=== PATIENT | female | born 1980 | race Caucasian/White ===

== ENCOUNTER 2016-12-24 09:55 | Emergency (ER) | payer MEDICAID ==
[~2016-12-24] VITALS: Wt 54.0 kg
[~2016-12-24 09:55] MED LIST: PREN-39 PO
--- NOTE | 2016-12-24 10:21 | ERD ---
ER Documentation Chief Complaint Date/Time DATE: 12/24/16 TIME: 10:18 Chief Complaint vag bleeding since this morning. mild abd pain , no dysuria HPI 36-year-old female who is with history of 1 failed at 32 weeks comes emergency room vaginal bleeding approximately 12 weeks . She does not recall exact menstrual periods, she was previously taking a control pill and reports her last period that she knows of in August 2016 and she then started the Depo shot. She experienced vaginal bleeding this morning, 2 gushes of blood with suprapubic cramping. She denies fevers, chills or dizziness ROS All systems reviewed and are negative except as per history of present illness. Medications Home Meds Reported Medications Vits W-Ca,Fe,Fa(<1MG) ( Vitamins) 1 Tab Tablet, 1 TAB PO DAILY for 7 Days 08/10/14 Allergies Allergies: Coded Allergies: No Known Drug Allergy (Verified Allergy, Unknown, 08/31/08) PMhx/Soc Medical and Surgical Hx: pt denies Medical Hx, pt denies Surgical Hx Hx Alcohol Use: No Hx Substance Use: No Hx Tobacco Use: No Physical Exam Vitals Vital Signs Date Time Temp Pulse Resp B/P Pulse Ox O2 Delivery O2 Flow Rate FiO2 12/24/16 09:59 98.0 75 20 136/84 99 Physical Exam General: Well-developed, well-nourished. The patient appears in no acute distress. HEENT: Head is normocephalic, atraumatic. No scleral icterus. Neck: Supple. Nontender. Lungs: Clear to auscultation. Normal air movement. Heart: Regular rate and rhythm. S1 and S2 are normal. No murmurs, gallops, or rubs. Abdomen: Soft, nontender, nondistended. Bowel sounds are normoactive. Extremities: No clubbing or cyanosis. Normal pulses. Moving extremities x 4. No weakness. Neurologic: Alert and oriented 3. No focal deficits. Skin: Normal turgor. No rash or lesions. Result Diagram: 12/24/16 1026 Results 24 hrs Laboratory Tests Test 12/24/16 10:26 12/24/16 10:32 Basophils # 0.010^3/ul Basophils % 0.4% Beta HCG, Quantitative 664417.0mIU/ml Eosinophils # 0.010^3/ul Eosinophils % 0.4% Hematocrit 36.4% Hemoglobin 12.4g/dl Lymphocytes # 1.910^3/ul Lymphocytes % 22.7% Mean Corpuscular Hemoglobin 30.9pg Mean Corpuscular Hemoglobin Concent 34.0g/dl Mean Corpuscular Volume 90.9fl Mean Platelet Volume 9.7fl Monocytes # 0.410^3/ul Monocytes % 4.6% Neutrophils # 6.010^3/ul Neutrophils % 71.9% Nucleated Red Blood Cells # 0.010^3/ul Nucleated Red Blood Cells % 0.0/100WBC Platelet Count 69330^3/UL Red Blood Count 4.0010^6/ul Red Cell Distribution Width 13.2% White Blood Count 8.410^3/ul Urine Bacteria FEW Urine Bilirubin NEGATIVE Urine Clarity CLEAR Urine Color LT. YELLOW Urine Glucose NEGATIVE% Urine Hemoglobin 2+ Urine Ketones NEGATIVE Urine Leukocyte Esterase NEGATIVE Urine Microscopic RBC 2-5/HPF Urine Microscopic WBC 0-2/HPF Urine Nitrite NEGATIVE Urine Specific Batson <=1.005 Urine Total Protein NEGATIVE Urine Urobilinogen 0.2 E.U./dL Urine pH 7.0 PROCEDURE: US Obstetrical 1st Trimester CLINICAL INDICATION: Vaginal bleeding TECHNIQUE: Multiple real-time images were acquired of the patient's maternal abdomen utilizing a curved array transducer. COMPARISON: Vaginal bleeding FINDINGS: There is a well implanted gestational sac within the fundus of the uterus with a mean sac diameter of 4.63 cm which corresponds to a gestational sac age of 10 weeks 3 days. No yolk sac is identified. There is a single pole with a crown-rump length of a 4.75 cm which corresponds to a gestational age of 11 weeks 4 days. There is positive cardiac activity being a t 152 beats per minute. The ovaries are not demonstrated. No adnexal mass or free fluid is identified IMPRESSION: 1. Single live intrauterine fetus which by ultrasound corresponds to a gestational age of 11 weeks 0 days plus or minus 5 days. The estimated date of delivery based on today's sonogram is 07/15/2017. 2. The ovaries are not demonstrated and no adnexal mass or free fluid is evident. Physician Med Date Time Electronically viewed and signed by Physician Med on 12/24/2016 11:14 Procedures/MDM 36 year old female comes in with vaginal bleeding single live IUP seen at 11 weeks today on ultrasound. No anemia, patient patient has type and Rh+, no indication for RhoGam. Patient does not show any concerning surgical process, no evidence of ectopic and will be advised to follow-up with OB in 3- 4 days. Departure Diagnosis: Primary Impression: Vaginal bleeding Condition: Good SWAPNA BLACKBURN PA-C Dec 24, 2016 10:21
[2016-12-24 10:53] LABS: BASOPHILS % 0.4 % (0.0-2.0); EOSINOPHILS % 0.4 % (0.0-7.0); HEMATOCRIT 36.4 % (37.0-47.0); HEMOGLOBIN 12.4 g/dl (12.0-16.0); LYMPHOCYTES # 1.9 10^3/ul (0.8-2.9); LYMPHOCYTES % 22.7 % (15.0-51.0); MEAN CORPUSCULAR HEMOGLOBIN 30.9 pg (29.0-33.0); MEAN CORPUSCULAR VOLUME 90.9 fl (82.0-101.0); MEAN PLATELET VOLUME 9.7 fl (7.4-10.4); MONOCYTE # 0.4 10^3/ul (0.3-0.9); MONOCYTES % 4.6 % (0.0-11.0); NEUTROPHILS % 71.9 % (39.0-77.0); PLATELET COUNT 202 10^3/UL (140-440); RED CELL DISTRIBUTION WIDTH 13.2 % (11.5-14.5); UNCORRECTED WBC 8.4 10^3/ul (4.8-10.8); WHITE BLOOD COUNT 8.4 10^3/ul (4.8-10.8)
[2016-12-24 10:55] LABS: CONDITION 1
[2016-12-24 11:10] LABS: ADD UMIC YES; URINE BILIRUBIN (Dip) NEGATIVE (NEGATIVE); URINE BLOOD (Dip) 2+ (NEGATIVE); URINE COLOR LT. YELLOW (YELLOW); URINE GLUCOSE (Dip) NEGATIVE (NEGATIVE); URINE KETONES (Dip) NEGATIVE (NEGATIVE); URINE LEUKOCYTE ESTERASE (Dip) NEGATIVE (NEGATIVE); URINE NITRITE (Dip) NEGATIVE (NEGATIVE); URINE TOTAL PROTEIN (Dip) NEGATIVE (NEGATIVE); URINE UROBILINOGEN (Dip) 0.2 E.U./dL (0.1-1.0)
--- NOTE | 2016-12-24 11:15 | RADRPT ---
PROCEDURE: US Obstetrical 1st Trimester CLINICAL INDICATION: Vaginal bleeding TECHNIQUE: Multiple real-time images were acquired of the patient's maternal abdomen utilizing a curved array transducer. COMPARISON: Vaginal bleeding FINDINGS: There is a well implanted gestational sac within the fundus of the uterus with a mean sac diameter o f 4.63 cm which corresponds to a gestational sac age of 10 weeks 3 days. No yolk sac is identified. There is a single pole with a crown-rump length of a 4.75 cm which corresponds to a gestation al age of 11 weeks 4 days. There is positive cardiac activity being a t 152 beats per minute. The ovaries are not demonstrated. No adnexal mass or free fluid is identified IMPRESSION: 1. Single live intrauterine fetus which by ultrasound corresponds to a gestational age of 11 weeks 0 days plus or minus 5 days. The estimated date of delivery based on today's sonogram is 07/15/2017. 2. The ovaries are not demonstrated and no adnexal mass or free fluid is evident. Physician Med Date Time Electronically viewed and signed by Physician Med on 12/24/2016 11:14 /
[2016-12-24 11:33] LABS: BACTERIA,URINE FEW
== END 2016-12-24 12:16 | disposition home or self-care (01) ==
LOC: FTE 09:55
DX: O20.9 Hemorrhage in early pregnancy, unspecified (principal); Z3A.11 11 weeks gestation of pregnancy
CPT/HCPCS: 36415; 76801; 81001; 84702; 85025; 86900; 86901; Z7502; 81003

== ENCOUNTER 2017-05-30 09:30 | Inpatient (IN) | payer MEDICAID ==
[~2017-05-30] VITALS: Ht 152.4 cm; Wt 61.7 kg
[2017-05-30] MEDS ORDERED: ACETAMINOPHEN 325 MG TAB PO PRN (10:00)
[2017-05-30 10:39] VITALS: Ht 152.4 cm; Wt 61.7 kg
[2017-05-30 10:41] VITALS: BP 99/64; PULSE 59; RESP 20
[2017-05-30] MEDS: PRENATAL VITAMIN PO SCH (10:53)
[2017-05-30] MEDS: FERROUS SULFATE (EC) 325 MG TAB PO SCH ×2 (10:53→21:06)
[2017-05-30] MEDS ORDERED: FERR325C PO (10:59)
[2017-05-30] MEDS ORDERED: LACTATED RINGER'S 1,000 ML IV SCH (11:00)
[2017-05-30] MEDS ORDERED: LACTATED RINGER'S 1,000 ML IV ONE (11:00)
[2017-05-30] MEDS: LACTATED RINGER'S 1,000 ML IV SCH ×2 (11:52→18:19)
[2017-05-30] MEDS ORDERED: DIPHENHYDRAMINE 50 MG CAP PO PRN (21:00)
[2017-05-30] MEDS: DOCUSATE SODIUM 100 MG CAP PO SCH (21:01)
--- NOTE | 2017-05-30 21:28 | HP ---
Date/Time of Note Date/Time of Note DATE: 05/30/17 TIME: 21:23 OB - History Hx of Present Chief Complaint: Low LALI Estimated Due Date: Jul 09, 2017 : 4 Para: 2 Spontaneous : 0 Therapeutic : 0 Care: Good Care Ultrasounds: Normal mid trimester US Obstetrical Complications: None Medical Complications: None Past Family/Social History * Past Medical, Surgical, Family and Obstetric Histories reviewed from chart. OB Admission Exam Vital Signs Vital Signs Vital Signs Date Time Temp Pulse Resp B/P Pulse Ox O2 Delivery O2 Flow Rate FiO2 05/30/17 10:41 97.6 59 20 99/64 Room Air Physical Exam HEENT: WNL Heart: Rhythm Normal Lungs: Clear, Equal Abdomen: WNL Extremities: Normal Reflexes: Normal Heart Rate: 120's Accelerations: Accelerations Present Decelerations: No Decelerations Varibility: Moderate OB Assessment/Plan Reason for admission: other (Borderline oligohydramnios) Plan: Other (IV hydration, monitor, repeat LALI on 05/31/2017.) BIJAN BRANCH MD May 30, 2017 21:28
[2017-05-30 22:40] LABS: ADD UMIC NO; UR ASCORBIC ACID NEGATIVE (NEGATIVE); UR BILIRUBIN (Dip) NEGATIVE (NEGATIVE); UR BLOOD (Dip) NEGATIVE (NEGATIVE); UR CLARITY CLEAR (CLEAR); UR COLOR COLORLESS (YELLOW); UR GLUCOSE (Dip) NEGATIVE (NEGATIVE); UR KETONES (Dip) NEGATIVE (NEGATIVE); UR LEUKOCYTE ESTERASE (Dip) NEGATIVE Leu/ul (NEGATIVE); UR NITRITE (Dip) NEGATIVE (NEGATIVE); UR SPECIFIC GRAVITY (Dip) 1.004 (1.003-1.030); UR TOTAL PROTEIN (Dip) NEGATIVE (NEGATIVE); UR UROBILINOGEN (Dip) NEGATIVE (NEGATIVE)
[2017-05-31] MEDS: LACTATED RINGER'S 1,000 ML IV SCH ×3 (00:36→14:16)
[2017-05-31] MEDS: DOCUSATE SODIUM 100 MG CAP PO SCH (09:10)
[2017-05-31] MEDS: PRENATAL VITAMIN PO SCH (09:10)
[2017-05-31] MEDS: FERROUS SULFATE (EC) 325 MG TAB PO SCH (09:10)
--- NOTE | 2017-05-31 13:52 | RADRPT ---
PROCEDURE: US OB. CLINICAL INDICATION: Low amniotic fluid index TECHNIQUE: Transabdominal OB views of the pelvis are available for review. COMPARISON: May 30, 2017, May 26, 2017 FINDINGS: Within the uterus, there is a single, live intrauterine . The presentation is cephalic. Th e heart rate is 140 beats per minute. The amniotic fluid index in four quadrants is 8.79 cm. The placenta is noted to be anterior and grade 3. There are no findings of abruption or previa. IMPRESSION: 1. Single live intrauterine with an amniotic fluid index of 8.79 cm. The presentation is cephalic. 2. The placenta is anterior and grade 3. There are no findings of abruption or previa. RPTAT: QQ .Diann Peoples MD, Date Time Electronically viewed and signed by .Diann Peoples MD, on 05/31/2017 13:52 .F/
--- NOTE | 2017-06-01 21:42 | DS ---
Date/Time of Note Date/Time of Note DATE: 06/01/17 TIME: 21:41 Obstetrical Discharge Record Final Diagnosis Final Diagnosis: not delivered Other Final Diagnosis Borderline Oligohydramnios Condition on Discharge Physical Assessment Voiding: Yes Bowel Movement: Yes Calf Tenderness: No Patient Condition: Stable BIJAN BRANCH MD Jun 01, 2017 21:42
== END 2017-05-31 14:50 | disposition home or self-care (01) | DRG 782 ==
LOC: OBG 09:50
PROVIDERS: ADMIT Obstetrics & Gynecology; ATTEND Obstetrics & Gynecology
DX: O41.03X0 Oligohydramnios, third trimester, not applicable or unspecified (principal); O09.523 Supervision of elderly multigravida, third trimester; Z3A.34 34 weeks gestation of pregnancy
CPT/HCPCS: 76816; 81003; 87086; J7120

== ENCOUNTER 2017-06-06 10:34 | Inpatient (IN) | payer MEDICAID ==
[~2017-06-06] VITALS: Ht 152.4 cm; Wt 62.7 kg
[2017-06-06 10:20] VITALS: BP 103/67; PULSE 80; RESP 16; Ht 152.4 cm; Wt 62.7 kg
[2017-06-06] MEDS: LACTATED RINGER'S 1,000 ML IV SCH ×4 (10:20→17:55)
[~2017-06-06 10:34] MED LIST changes: +FERR325C PO
[2017-06-06] MEDS ORDERED: ACETAMINOPHEN 325 MG TAB PO PRN (11:30)
[2017-06-06] MEDS: FERROUS SULFATE (EC) 325 MG TAB PO SCH (17:41)
[2017-06-06] MEDS: DOCUSATE SODIUM 100 MG CAP PO SCH (17:42)
--- NOTE | 2017-06-06 18:20 | HP ---
Date/Time of Note Date/Time of Note DATE: 06/06/17 TIME: 18:15 OB - History Hx of Present Chief Complaint: Low amniotic fluid Estimated Due Date: Jul 09, 2017 : 4 Para: 2 Spontaneous : 0 Therapeutic : 0 Care: Good Care Ultrasounds: Normal mid trimester US Obstetrical Complications: Other (abnormal serum marker) Medical Complications: None Past Family/Social History * Past Medical, Surgical, Family and Obstetric Histories reviewed from chart. OB Admission Exam Vital Signs Vital Signs Vital Signs Date Time Temp Pulse Resp B/P Pulse Ox O2 Delivery O2 Flow Rate FiO2 06/06/17 10:20 99.3 80 16 103/67 Room Air Physical Exam HEENT: WNL Heart: Rhythm Normal Lungs: Clear, Equal Abdomen: WNL Extremities: Normal Reflexes: Normal Heart Rate: 140's Accelerations: Accelerations Present Decelerations: No Decelerations Varibility: Moderate OB Assessment/Plan Reason for admission: other (oligohydramnios) Plan: Other (IV hydration, continuous monitoring, Repeat LALI on 06/07/2017) BIJAN BRANCH MD Jun 06, 2017 18:20
[2017-06-07] MEDS: LACTATED RINGER'S 1,000 ML IV SCH ×2 (01:57→08:36)
[2017-06-07] MEDS: FERROUS SULFATE (EC) 325 MG TAB PO SCH (08:46)
[2017-06-07] MEDS: DOCUSATE SODIUM 100 MG CAP PO SCH (08:46)
[2017-06-07] MEDS ORDERED: PRENATAL VITAMIN PO SCH (09:00)
--- NOTE | 2017-06-07 09:13 | RADRPT ---
PROCEDURE: Limited OB ultrasound CLINICAL INDICATION: Low LALI TECHNIQUE: Sonographic evaluation to assess the LALI was performed. Transabdominal imaging of the gravid uterus was performed. COMPARISON: No prior exam is available for comparison. FINDINGS: There is a single live intrauterine with a heart rate of 131 bpm. position is cephalic. The placenta is anterior. The LALI measures 9.0 cm. IMPRESSION: The LALI measures 9.0 cm. RPTAT: HH .Maggie Hogan MD, MD Date Time Electronically viewed and signed by .Maggie Hogan MD, on 06/07/2017 09:13 .G/
== END 2017-06-07 11:15 | disposition home or self-care (01) | DRG 782 ==
LOC: OBG 10:34 → EDSTATUS 07-09 10:05
PROVIDERS: ADMIT Obstetrics & Gynecology; ATTEND Obstetrics & Gynecology
DX: O41.03X0 Oligohydramnios, third trimester, not applicable or unspecified (principal); Z3A.35 35 weeks gestation of pregnancy
CPT/HCPCS: 76815; 84112; J7120

== ENCOUNTER 2017-06-30 03:40 | Inpatient (IN) | payer MEDICAID ==
[~2017-06-30] VITALS: Ht 157.5 cm; Wt 69.0 kg
[2017-06-30 04:06] VITALS: Ht 157.5 cm; Wt 69.0 kg
[2017-06-30] MEDS ORDERED: LACTATED RINGER'S 1,000 ML IV SCH (04:23)
[2017-06-30] MEDS ORDERED: OXYTOCIN 30 UNITS/LR 500 ML IV SCH ×2 (04:30)
[2017-06-30] MEDS ORDERED: LIDOCAINE 1% (MPF) 30 ML INJ INJ PRN (04:30)
[2017-06-30] MEDS ORDERED: METHYLERGONOVINE 0.2 MG INJ IM PRN ×2 (04:30→09:00)
[2017-06-30] MEDS ORDERED: OXYTOCIN 30 UNITS/LR 500 ML IV PRN ×2 (04:30→09:00)
[2017-06-30] MEDS ORDERED: BUTORPHANOL 2 MG INJ IV PRN (04:30)
[2017-06-30] MEDS ORDERED: MISOPROSTOL 200 MCG TAB PR PRN ×2 (04:30→09:00)
[2017-06-30] MEDS ORDERED: CARBOPROST 250 MCG INJ IM PRN ×2 (04:30→09:00)
[2017-06-30] MEDS ORDERED: IBUPROFEN 600 MG TAB PO PRN (04:30)
[2017-06-30 04:57] LABS: BASOPHILS % 0.5 % (0.0-2.0); EOSINOPHILS # 0.1 10^3/ul (0.0-0.5); EOSINOPHILS % 0.9 % (0.0-7.0); HEMATOCRIT 35.4 % (37.0-47.0); LYMPHOCYTES # 2.4 10^3/ul (0.8-2.9); LYMPHOCYTES % 29.6 % (15.0-51.0); MEAN CORPUSCULAR HEMOGLOBIN 30.5 pg (29.0-33.0); MEAN CORPUSCULAR HGB CONC 33.9 g/dl (32.0-37.0); MEAN CORPUSCULAR VOLUME 89.8 fl (82.0-101.0); MEAN PLATELET VOLUME 11.8 fl (7.4-10.4); MONOCYTE # 0.5 10^3/ul (0.3-0.9); NEUTROPHILS % 61.9 % (39.0-77.0); PLATELET COUNT 167 10^3/UL (140-415); RED BLOOD COUNT 3.94 10^6/ul (4.20-5.40); RED CELL DISTRIBUTION WIDTH 13.6 % (11.5-14.5)
[2017-06-30] MEDS ORDERED: AMPICILLIN 2 GM/NS (PMX) 100 ML IVPB ONE (05:00)
[2017-06-30 05:13] LABS: ADD UMIC YES; UR ASCORBIC ACID NEGATIVE (NEGATIVE); UR BACTERIA FEW /HPF (NONE SEEN); UR BILIRUBIN (Dip) NEGATIVE (NEGATIVE); UR BLOOD (Dip) 3+ mg/dL (NEGATIVE); UR CLARITY SLIGHTLY CLOUDY (CLEAR); UR COLOR YELLOW (YELLOW); UR GLUCOSE (Dip) NEGATIVE (NEGATIVE); UR KETONES (Dip) NEGATIVE (NEGATIVE); UR LEUKOCYTE ESTERASE (Dip) NEGATIVE Leu/ul (NEGATIVE); UR NITRITE (Dip) NEGATIVE (NEGATIVE); UR RBC 5 /HPF (0-5); UR SPECIFIC GRAVITY (Dip) 1.013 (1.003-1.030); UR SQUAMOUS EPITHELIAL CELL FEW /HPF (FEW); UR TOTAL PROTEIN (Dip) 1+ mg/dl (NEGATIVE); UR UROBILINOGEN (Dip) NEGATIVE (NEGATIVE)
[2017-06-30 05:15] LABS: INR 0.91; PROTIME 12.3 Sec (12.2-14.2)
[2017-06-30 05:16] LABS: PARTIAL THROMBOPLASTIN TIME 25.4 Sec (25.0-35.0)
[2017-06-30] MEDS ORDERED: MINERAL OIL LIGHT 10 ML VIAL TOP ONE (05:30)
[2017-06-30 05:45] VITALS: BP 157/85; PULSE 70; RESP 20
[2017-06-30] MEDS ORDERED: CLINDAMYCIN 900 MG/D5W (PMX) 50 ML IV SCH (06:00)
[2017-06-30] MEDS ORDERED: LACTATED RINGER'S 1,000 ML IV PRN (06:00)
--- NOTE | 2017-06-30 06:01 | HP ---
Date/Time of Note Date/Time of Note DATE: 06/30/17 TIME: 05:53 OB - History Hx of Present Free Text/Dictation 36y.o at 38w5d in active labor with intact membrane. EFM revealed uterine contractions q3-4 min. initial VE cx 3-4/80% /-2 admitted for expectant management. Chief Complaint: uterine contractions Estimated Due Date: Jul 09, 2017 : 4 Para: 3 Spontaneous : 0 Therapeutic : 0 Care: Good Care Ultrasounds: Normal mid trimester US Obstetrical Complications: None Medical Complications: None Past Family/Social History * Past Medical, Surgical, Family and Obstetric Histories reviewed from chart. Blood Type: O+ Rubella: immune RPR/VDRL: Negative GBS Status: Negative HBsAG: Negative OB Admission Exam Vital Signs Vital Signs Vital Signs Date Time Temp Pulse Resp B/P Pulse Ox O2 Delivery O2 Flow Rate FiO2 06/30/17 05:45 98.4 70 20 157/85 Room Air Physical Exam HEENT: WNL Heart: Rhythm Normal Lungs: Clear, Equal Abdomen: WNL Extremities: Normal Reflexes: Normal Cervical Dilatation: 3cm Effacement: 75% Station: -2 Membranes: Intact Amniotic Fluid: Unevaluable Heart Rate: 140's Accelerations: Accelerations Present Decelerations: No Decelerations Varibility: Moderate Contractions on Admission: < 5 Minutes Apart Intensity: Mild Last 72 hours Lab Results CBC & BMP 06/30/17 04:10 OB Assessment/Plan Reason for admission: active labor Plan: Expectant Management TAJ REESE MD Jun 30, 2017 06:01
--- NOTE | 2017-06-30 08:51 | LDN ---
Date/Time of Note Date/Time of Note DATE: 06/30/17 TIME: 08:46 Delivery Summary normal vaginal delivery of normal male infant Weeks of Gestation 38w5d Placenta Delivered: Spontaneously Meconium: none Episiotomy: No Perineal laceration: 0 Anesthesia type: None Estimated blood loss: 100 Sponge & Needle done & correct: Yes All needle counts correct: Yes Any foreign bodies felt in the: No Problems: Delivery Information Sex Infant Sex: male Apgars 1 Minute: 9 5 Minute: 9 Suctioning Nose & mouth suctioned at lloyd: Yes Delee suction performed: No Umbilical Cord Umbilical cord with: 3 Vessels Cord presentations: no nuchal cord Cord Blood was obtained: Yes Mother & Baby Disposition Disposition Mom & Baby to Maternity; Good: Yes Mom transferred to: Other () Baby to NICU: No TAJ REESE MD Jun 30, 2017 08:51
[2017-06-30] MEDS ORDERED: OXYCODONE/ASPIRIN (4.88/325) TAB PO PRN ×2 (09:00)
[2017-06-30] MEDS ORDERED: AMPICILLIN 1 GM/NS (PMX) 50 ML IVPB SCH (09:00)
[2017-06-30] MEDS ORDERED: BENZOCAINE 20% 56 ML SPRAY TOP PRN (09:00)
[2017-06-30] MEDS ORDERED: LANOLIN 7 GM TUBE TOP PRN (09:00)
[2017-06-30] MEDS ORDERED: WITCH HAZEL/GLYCERIN PAD PR PRN (09:00)
[2017-06-30] MEDS ORDERED: ZOLPIDEM 5 MG TAB PO PRN (09:00)
[2017-06-30] MEDS: SENNA/DOCUSATE NA (8.6MG/50MG) TAB PO SCH ×2 (09:00→21:09)
[2017-06-30 11:38] VITALS: BP 97/53; PULSE 59; RESP 18
[2017-06-30] MEDS: IBUPROFEN 600 MG TAB PO SCH ×3 (12:33→23:59)
[2017-06-30] MEDS ORDERED: CALCIUM CARBONATE 500 MG CHEW TAB PO ONE (13:00)
[2017-06-30 16:30] VITALS: BP 117/78; PULSE 51; RESP 18
[2017-06-30 20:30] VITALS: BP 96/50; PULSE 61; RESP 18
[2017-06-30 23:45] VITALS: BP 129/74; PULSE 81; RESP 19
[2017-07-01 04:15] VITALS: BP 99/54; PULSE 54; RESP 18
[2017-07-01] MEDS: IBUPROFEN 600 MG TAB PO SCH ×3 (05:29→17:32)
[2017-07-01 08:20] VITALS: BP 109/70; PULSE 62; RESP 18
[2017-07-01] MEDS: SENNA/DOCUSATE NA (8.6MG/50MG) TAB PO SCH ×2 (09:28→21:13)
[2017-07-01 10:18] LABS: BASOPHILS % 0.4 % (0.0-2.0); EOSINOPHILS # 0.1 10^3/ul (0.0-0.5); HEMATOCRIT 32.4 % (37.0-47.0); HEMOGLOBIN 11.1 g/dl (12.0-16.0); LYMPHOCYTES # 2.3 10^3/ul (0.8-2.9); LYMPHOCYTES % 25.3 % (15.0-51.0); MEAN CORPUSCULAR HGB CONC 34.3 g/dl (32.0-37.0); MEAN CORPUSCULAR VOLUME 90.5 fl (82.0-101.0); MEAN PLATELET VOLUME 11.6 fl (7.4-10.4); MONOCYTE # 0.4 10^3/ul (0.3-0.9); MONOCYTES % 4.6 % (0.0-11.0); NEUTROPHILS % 67.6 % (39.0-77.0); PLATELET COUNT 151 10^3/UL (140-415); RED BLOOD COUNT 3.58 10^6/ul (4.20-5.40); RED CELL DISTRIBUTION WIDTH 13.4 % (11.5-14.5); WHITE BLOOD COUNT 8.9 10^3/ul (4.8-10.8)
--- NOTE | 2017-07-01 13:07 | PN ---
Date/Time of Note Date/Time of Note DATE: 07/01/17 TIME: 13:05 OB Subjective Subjective Subjective day 1 Afebrile Vital signs stable abdomen soft uterus firm lochia normal extremity normal ambulation encouraged VAISHALI RAMACHANDRAN MD Jul 01, 2017 13:07
[2017-07-01 15:35] VITALS: BP 117/73; PULSE 60; RESP 18
[2017-07-01 20:15] VITALS: BP 115/69; PULSE 57; RESP 17
[2017-07-02] MEDS: IBUPROFEN 600 MG TAB PO SCH ×3 (00:03→13:07)
[2017-07-02 00:15] VITALS: BP 110/70; PULSE 54; RESP 16
[2017-07-02 04:00] VITALS: BP 101/58; PULSE 58; RESP 19
[2017-07-02 08:42] VITALS: BP 104/61; PULSE 56; RESP 20
[2017-07-02] MEDS ORDERED: DIPHTH/TET/ACEL PERTUSS (ADULT) 0.5 ML VIAL IM* ONE (09:00)
[2017-07-02] MEDS: SENNA/DOCUSATE NA (8.6MG/50MG) TAB PO SCH (09:18)
--- NOTE | 2017-07-02 11:40 | PD.PPDC ---
[facility] Discharge Instruction Condition Patient Condition: Good Activity/Restrictions Restrictions: No Exercising No Lifting No Driving No Sexual Activity Nothing in the Vagina No [place] No Tampons, douche Wound/Drain Care Instructions Wound/Drain Care Instructions: Wash with soap and water Keep clean and dry Follow-up Follow-up with Physician: 2, Week/Weeks Provider Information: instructions given recommended to make appointment to be seen at the clinic in 2 weeks Return to clinic for [facility] Instructions: Fever greater than 101 Chills Worsening abdominal pain Excessive Vaginal Bleeding More than 2 pads per hour Unable to tolerate diet OB Instructions: Breast Tenderness Depression Blurried Vision Headache Surgical Instructions: Incisional Drainage Incisional Redness VAISHALI RAMACHANDRAN MD Jul 02, 2017 11:39
--- NOTE | 2017-07-02 11:42 | DS ---
Date/Time of Note Date/Time of Note DATE: 07/02/17 TIME: 11:41 Discharge Summary Admission/Discharge Info Admit Date/Time Jun 30, 2017 at 04:30 Discharge Date/Time July 02, 2017 at 1130 Discharge Diagnosis Term Patient Condition: Good Procedures Normal vaginal delivery Hx of Present Illness Term in labor Hospital Course Satisfactory uneventful Home Meds Reported Medications Ferrous Sulfate (Iron) 325 Mg Capsule.er, 325 MG PO BID, CAP 05/30/17 Vits W-Ca,Fe,Fa(<1MG) ( Vitamins) 1 Tab Tablet, 1 TAB PO DAILY for 7 Days 08/10/14 Follow-up Plan instruction given recommended to make appointment to be seen at the clinic in 2 weeks Primary Care Provider Care Physician No Primary Time spent on discharge: < 30 minutes VAISHALI RAMACHANDRAN MD Jul 02, 2017 11:42
== END 2017-07-02 15:03 | disposition home or self-care (01) | DRG 775 ==
LOC: L-D 03:40 → OBT 03:40 → L-D 04:30 → PP1 18:06
PROVIDERS: ADMIT Obstetrics & Gynecology; ATTEND Obstetrics & Gynecology
PROC: 10E0XZZ Delivery of Products of Conception, External Approach (ICD-10-PCS; principal; 2017-06-30)
DX: O80 Encounter for full-term uncomplicated delivery (principal); Z37.0 Single live birth; Z3A.38 38 weeks gestation of pregnancy
CPT/HCPCS: 81001; 85025; 85610; 85730; 86592; 86900; 86901; 90715; G0463; J0290; J2590; J7120

== ENCOUNTER 2017-08-29 08:28 | Day surgery (SDC) | payer MEDICAID ==
[~2017-08-29] VITALS: Ht 154.9 cm; Wt 57.0 kg
[2017-08-29] VITALS (8 sets, daily range): BP systolic 94–124; BP diastolic 59–73; PULSE 54–68; RESP 15–20; Ht 154.9 cm; Wt 57.0 kg
[2017-08-29] MEDS ORDERED: BUPIVACAINE 0.5%/EPI (SDV) 30 ML INJ ONE (10:10)
[2017-08-29] MEDS ORDERED: PROPOFOL 20 ML ONE (10:37)
[2017-08-29] MEDS ORDERED: CEFAZOLIN 1 GM INJ ONE (10:37)
[2017-08-29] MEDS ORDERED: SUCCINYLCHOLINE CHLORIDE 100 MG/5 ML SYG IV ONE (10:37)
[2017-08-29] MEDS ORDERED: GLYCOPYRROLATE 0.4 MG INJ ONE (10:37)
[2017-08-29] MEDS ORDERED: ROCURONIUM 50 MG INJ ONE (10:37)
[2017-08-29] MEDS ORDERED: LIDOCAINE 2% (SDV) 5 ML INJ ONE (10:37)
[2017-08-29] MEDS ORDERED: NEOSTIGMINE 3 MG/3 ML SYRINGE ONE (10:37)
[2017-08-29] MEDS ORDERED: FENTAnyl 50 MCG/ML VIAL ONE (10:42)
[2017-08-29] MEDS ORDERED: MIDAZOLAM 1 MG/ML 2 ML INJ ONE (10:42)
[2017-08-29] MEDS ORDERED: ONDANSETRON 4 MG INJ ONE (10:49)
[2017-08-29] MEDS ORDERED: DEXAMETHASONE 4 MG/ML 1 ML INJ ONE (10:49)
[2017-08-29] MEDS ORDERED: FAMOTIDINE 20 MG INJ ONE (10:50)
[2017-08-29] MEDS ORDERED: HYDROmorphONE 2 MG/ML SYG ONE (10:50)
[2017-08-29] MEDS ORDERED: KETOROLAC 30 MG INJ ONE (11:37)
--- NOTE | 2017-08-29 11:56 | SIPON ---
Date/Time of Note Date/Time of Note DATE: 08/29/17 TIME: 11:54 Operative Report Preoperative Diagnosis Voluntary sterilization Postoperative Diagnosis Same Operation/Procedure Performed Minilaparotomy BTL Surgeon Bijan Branch MD assistant restaurant general manager industrial technologist Anesthesia: general Estimated blood loss: minimal Transfusion Required none Specimen right and left Fallopian tubes Grafts/Implants none Complications none BIJAN BRANCH MD Aug 29, 2017 11:56
[2017-08-29] MEDS ORDERED: DIPHENHYDRAMINE 50 MG INJ IV PRN (12:00)
[2017-08-29] MEDS ORDERED: HYDROmorphONE (0.2 MG/ML) 10ML SYG IV PRN ×3 (12:00)
[2017-08-29] MEDS ORDERED: FENTAnyl 50 MCG/ML VIAL IV PRN ×3 (12:00)
[2017-08-29] MEDS ORDERED: KETOROLAC 30 MG INJ IV PRN (12:00)
[2017-08-29] MEDS ORDERED: HYDROCODONE/APAP (5/325) TAB PO PRN (12:00)
[2017-08-29] MEDS ORDERED: PROCHLORPERAZINE 10 MG INJ IV PRN (12:00)
[2017-08-29] MEDS ORDERED: OXYCODONE/ACETAMINOPHEN (5/325) TAB PO PRN (12:00)
[2017-08-29] MEDS ORDERED: MEPERIDINE 25 MG INJ IV PRN (12:00)
[2017-08-29] MEDS ORDERED: ONDANSETRON 4 MG INJ IV PRN ×2 (12:00)
[2017-08-29] MEDS ORDERED: morphine 2 MG INJ IV PRN (12:00)
--- NOTE | 2017-08-29 12:42 | PREOPHP ---
DATE OF ADMISSION: 08/29/2017 HISTORY OF PRESENT ILLNESS: A 37-year-old female 4, para 3, AB 1, status post spontaneous v aginal delivery on 06/30/2017, requests sterilization by bilateral tubal ligation. PAST MEDICAL HISTORY: Unremarkable. PAST SURGICAL HISTORY: Unremarkable. FAMILY HISTORY: Diabetes. ALLERGIES: NO KNOWN ALLERGIES. PHYSICAL EXAMINATION: VITAL SIGNS: Patient is afebrile. Vital signs stable. HEAD, NECK AND CHEST: Within normal limits. ABDOMEN: Soft, nontender, nondistended. PELVIC: Normal. EXTREMITIES: Within normal limits. NEUROLOGIC: Within normal limits. IMPRESSION: Voluntary sterilization. PLAN: Minilaparotomy, bilateral tubal ligation. Risks, benefits and alternatives of the procedure were explained to patient. Patient has been counseled about all of her contraceptive options includ ing all methods of sterilization. It was explained to patient that with bilateral tubal ligation th ere is a chance of failure resulting in ectopic and/or intrauterine . After coun seling, the patient said she understood and gave informed consent for the procedure. Dictated By: BIJAN MIRANDA/JUAN FRANCISCO Conf#: [id number] DID#: [id number]
--- NOTE | 2017-08-29 13:36 | OPR ---
DATE OF OPERATION: 08/29/2017 PREOPERATIVE DIAGNOSIS: Voluntary sterilization. POSTOPERATIVE DIAGNOSIS: Voluntary sterilization. OPERATION PERFORMED: Minilaparotomy, bilateral tubal ligation. SURGEON: Bijan Coppola MD SHOP SUPERINTENDENT: line maintenance technician. ANESTHESIA: General. ANESTHESIOLOGIST: Dr. Vizcarra PROCEDURE: The patient was taken to the operating room and placed on the operating table in supine position. After adequate general anesthesia was given, the area was prepared and draped in the usua l sterile fashion. Using a scalpel, Pfannenstiel incision was made about 2 fingerbreadths above the symphysis pubis. T he incision was carried to the fascia. The fascia was incised and extended bilaterally with Bovie. Two Josselyn's were used to separate the fascia from the muscle. The muscle was dissected in midline down to peritoneum. The peritoneum was secured with 2 Kellys and incised with Metzenbaum scissors. The right fallopian tube was grasped with a Lenox clamp using 0 plain suture ligature, a 5 cm se gment of the right fallopian tube was doubly ligated. Using Metzenbaum scissors, a portion of the r ight fallopian tube above the ligated area was excised and sent to pathology. Same procedure was re peated on the left fallopian tube. After assuring hemostasis, the peritoneum was closed with 0 dispatch coordinator haile. The fascia was closed with 0 Vicryl continuous. Subcutaneous tissue was reapproximated with 0 chromic. Skin was closed with chanel. ESTIMATED BLOOD LOSS: Minimal. COUNTS: correct. Dictated By: BIJAN MIRANDA/JUAN FRANCISCO Conf#: [id number] DID#: [id number]
== END 2017-08-29 15:26 | disposition home or self-care (01) ==
LOC: SDS 08:28
PROVIDERS: ATTEND Obstetrics & Gynecology
DX: Z30.2 Encounter for sterilization (principal)
CPT/HCPCS: 58600; 84703; 86850; 86900; 86901; 88302; J0690; J1100; J1170; J1885; J2250; J2405; J2710; J3010; Z7512; Z7610